=== PATIENT | female | born 1985 | race Caucasian/White ===

== ENCOUNTER → 2021-04-02 10:47 | Outpatient (BNVA) | payer OTHER, SELFPAY | PROVIDERS: Visit Provider Advanced Practice Midwife | DX: N92.6 Irregular menstruation, unspecified (principal); E66.8 Other obesity | CPT/HCPCS: 81025; 99212 ==

== ENCOUNTER 2021-04-03 12:36 | Outpatient (REF) | payer OTHER, SELFPAY ==
--- NOTE | ~2021-04-03 | US_ITS ---
EXAMINATION: US OBSTETRICAL ULTRASOUND CLINICAL INFORMATION: N92.6 - Irregular menstruation, unspecified. LMP unknown. Positive test. COMPARISON: Remote obstetrical ultrasound 01/28/2018 TECHNIQUE: Real time transabdominal imaging with color and M-mode Doppler. POSITION: Cephalic PLACENTA: Anterior AMNIOTIC FLUID: Subjectively normal. RAMAN not provided. MEASUREMENTS: biometric measurements are as follows: Biparietal Diameter: 6.88 cm (27 weeks 5 days) Occipital Frontal Diameter: 8.93 cm (27 weeks 4 days) Head Circumference: 25.51 cm (27 weeks 6 days) Abdominal Circumference: 22.84 cm (27 weeks 2 days) Femur Length: 5.13 cm (27 weeks 4 days) Tibia Length: 4.42 cm (27 weeks 2 days) The standard deviation for the above measurements is +/- 10 days. ESTIMATED WEIGHT: The EFW is 1060 grams +/- 155 grams (2 lbs 5 oz +/- 5 oz). ANATOMY (LIMITED): No hydrocephalus. stomach and kidneys unremarkable. cardiac activity 139 bpm. Four-chamber heart view not provided. US/US OB limited IMPRESSION: 1. Single intrauterine gestation in cephalic position with anterior placenta. 2. Ultrasound gestational age 27 weeks 4 days +/- 10 days. 3. Estimated date of delivery 06/29/2021 +/- 10 days. 4. EFW is 1060 grams +/- 155 grams (2 lbs 5 oz +/- 5 oz). 5. Amniotic fluid volume subjectively normal.
== END 2021-04-03 12:37 | disposition home or self-care (01) ==
LOC: HO.US 12:36
PROVIDERS: Visit Provider Advanced Practice Midwife
DX: N92.6 Irregular menstruation, unspecified (principal)
CPT/HCPCS: 76815

== ENCOUNTER 2022-02-03 09:15 | Emergency (ER) | payer OTHER, SELFPAY ==
[2022-02-03 09:41] VITALS: BP 152/78; PULSE 73; RESP 18; TEMP 36.4; O2SAT 97; BMI 46.3
[2022-02-03 09:48] LABS: Appearance Urine CLOUDY; Color Urine DK YELLOW; Glucose Urine UA NEG (NEG); Leukocyte Esterase Urine 2+ (NEG); Nitrite Urine NEG (NEG); Specific Gravity - Urine >= 1.030 (1.005-1.025); UACC Culture Trigger YES; Urine Blood 3+ (NEG); Urine Ketones NEG (NEG); Urine Protein 2+ MG/DL (NEG-TRACE)
[2022-02-03 09:50] LABS: UPreg QC Valid YES; Urine Pregnancy NEGATIVE (NEGATIVE)
--- NOTE | 2022-02-03 10:06 | ED_ITS ---
HPI - Female Genitourinary General Chief complaint: Urogenital-Female Stated complaint: ?UTI Time Seen by Provider: 02/03/22 10:02 Source: patient Mode of arrival: ambulatory Limitations: no limitations History of Present Illness MD elicited complaint: dysuria and UTI Pertinent past history: recurrent UTIs Onset (ago): day(s) (Since yesterday) Location of symptoms: suprapubic Severity: moderate Female Urogenital Radiation: Non-Radiating Quality of pain: cramping Consistency: constant Vaginal discharge: none Vaginal bleeding: none Urinary symptoms: Dysuria, Urgency and Frequency Exacerbating factors: urination Relieving factors: none Associated symptoms: denies other symptoms Treatment prior to arrival: none Patient : No Related Data Home Medications Medication Instructions Recorded Confirmed vitamin 1 tab PO DAILY 04/02/21 no.76-iron,carbonyl 29 mg iron-folic acid 1 mg tablet (PNV 29-1) Previous Rx's Medication Instructions Recorded nitrofurantoin 100 mg PO BID 7 Days #14 cap 02/03/22 monohydrate/macrocrystals 100 mg capsule (Macrobid) phenazopyridine 100 mg tablet 100 mg PO TID PRN #6 tab 02/03/22 (Pyridium) Allergies Allergy/AdvReac Type Severity Reaction Status Date / Time clarithromycin [From BIAXIN] Allergy Unknown HIVES AND Verified 02/03/22 09:41 FEVER Sulfa (Sulfonamide Allergy Unknown Tongue and Verified 02/03/22 09:41 Antibiotics) throat swelling Review of Systems Review of Systems: Constitutional : No Fever, No Chills, No Night Sweats, No Fatigue, No Malaise Cardiovascular : No Chest Pain, No SOB Respiratory : No Cough, No Sputum, No Wheezing, No Dyspnea Gastrointestinal : No Nausea, No Vomiting, No Diarrhea, No abdominal Pain, No Hematochezia, No Melena Genitourinary : + dysuria/urinary urgency/frequency, No irregular bleeding, No Hematuria,No Urinary Incontinence, No Flank Pain Musculoskeletal : No joint pain, No Myalgias, No Joint Swelling Skin : No Skin Lesions, No rash Neuro : No Weakness, No Numbness, No Paresthesias, No Loss of Consciousness, No Dizziness, No Headache Heme/Lymph: No Lymphadenopathy Endocrine : No Temperature Intolerance Yes all other systems are reviewed and are negative PMFSH Past Medical History Attestation statement: The following information was validated with the patient. Medical History Asthma Extreme obesity Surgical History Hx of dilation and curettage Social History Social History Alcohol intake: never Patient Tobacco Use Status: Former Tobacco user Advance Directives: No Advance Directives Information Provided: No Patient : No Physical Exam Vital Signs: Vital Signs: Last Vital Signs Temp 97.6 F 02/03/22 09:41 Pulse 73 02/03/22 09:41 Resp 18 02/03/22 09:41 BP 152/78 H 02/03/22 09:41 Pulse Ox 97 02/03/22 09:41 BMI result Body Mass Index 46.3 vital signs have been reviewed as normal and appeared to be correct. Blood pressure normal Heart rate normal. Respiration rate normal. Temperature normal. Oxygen saturation normal. Appearance: Alert. Oriented X3. No acute distress. Head: Normal external exam. Normocephalic. Eyes: PERRLA. EOMI. Conjunctiva and sclera normal. Eyelids normal. ENT: Pharynx normal. Uvula midline. Moist mucous membranes. No trismus noted. No drooling noted. No muffled voice noted. Neck: Normal inspection. Neck supple. FROM. No adenopathy. No meningeal signs. CVS: Normal heart rate and rhythm. Heart sound normal. No murmurs noted. Pulses normal throughout. Respiratory: No respiratory distress. Painless inspiration. Breath sounds normal. No wheezes/rales/rhonchi noted. Chest nontender. No accessory muscle usage noted or decreased air movement noted. Abdomen: Soft and nontender. Nondistended. No guarding. No rigidity. Bowel sounds normal in all 4 quadrants. No distention noted. No organomegaly noted. No visible injury noted. No rebound tenderness. Negative Rovsing sign. Negative obturator's sign. Negative psoas sign. Negative Stanton sign. Back: No CVA tenderness. Full range of motion noted. Skin: Skin warm and dry. Normal skin color. Normal skin turgor. No rashes/lesions/lacerations noted. Extremities: Extremities exhibit normal range of motion. Extremities nontender. Neuro: Oriented X 3. No motor deficit. No sensory deficit. Reflexes normal. Normal steady gait. CN's II-XII intact bilaterally? Course Course Course Narrative: Patient positive for UTI. Negative for . Will DC home antibiotics and symptomatic treatment instructions return if any new or worsening symptoms to follow up with primary care provider. Patient understands agrees with this plan. MDM - Female Genitourinary Medical Records Attestation: I reviewed the patient's medical records. Lab Data Attestation: I reviewed the patient's lab results. Labs: Lab Results 02/03/22 02/03/22 Range/Units 09:43 09:43 Urine Color DK YELLOW Urine Appearance CLOUDY Urine pH 6.0 (5.0-8.0) Ur Specific [place] >= 1.030 H (1.005-1.025) Urine Protein 2+ H (NEG-TRACE) MG/DL Urine Glucose (UA) NEG (NEG) MG/DL Urine Ketones NEG (NEG) MG/DL Urine Blood 3+ H (NEG) Urine Nitrite NEG (NEG) Ur Leukocyte Esterase 2+ H (NEG) Urine Test NEGATIVE (NEGATIVE) Discharge Plan Discharge Clinical Impression: Urinary tract infection Patient Disposition: Home, Self-Care Instructions: Urinary Tract Infection in Women (DC) Prescriptions: New nitrofurantoin monohyd/m-cryst [Macrobid] 100 mg capsule 100 mg PO BID 7 Days Qty: 14 0RF Rx Instructions: must administer with a meal/food phenazopyridine [Pyridium] 100 mg tablet 100 mg PO TID PRN (Reason: pain) Qty: 6 0RF No Action PNV 29-1 29 mg iron- 1 mg tablet 1 tab PO DAILY 0RF Referrals: Physician,Unknown J [Primary Care Provider] - (your pcp) Print Language: Indonesian
[2022-02-03 10:13] LABS: WBC Urine TNTC /HPF (0-4)
[2022-02-03 10:15] LABS: Bacteria Urine TRACE /LPF; Mucus Urine TRACE /LPF; Squamous Epithelial Cell Urine TRACE /LPF
[2022-02-03] MEDS: Nitrofurantoin Monohyd/M-Cryst 100 MG CAPSULE PO (10:15)
[2022-02-03] MEDS: Phenazopyridine HCL 200 MG TABLET PO (10:15)
== END 2022-02-03 10:22 | disposition home or self-care (01) ==
PROVIDERS: Emergency Provider Emergency Medicine
DX: N39.0 Urinary tract infection, site not specified (principal); J45.909 Unspecified asthma, uncomplicated
CPT/HCPCS: 81001; 81025; 87086; 87088; 87147; 87186; 99283

== ENCOUNTER 2023-11-16 14:33 | Outpatient (AMB) | payer OTHER, SELFPAY ==
--- NOTE | 2023-11-16 14:44 | MHC.OFFWIV ---
Intake Vital Signs 11/16/23 14:55 Height 5 ft 4 in Weight 250 lb BMI 42.9 BP 132/80 Blood Pressure Location Lt brachial Position Sitting Pulse 94 Pulse Source Pulse Oximeter Temp 97.8 F Temp Source Temporal Artery Scan Pulse Oximetry (%) 96 Oxygen Delivery Method Room Air Intake Visit Reasons: EP tooth infection-UTI Intake Note: pt is here today for tooth infection and UTI started yesterday Patient Tobacco Use Status: Current someday Tobacco user Patient : Yes Allergies clarithromycin [From BIAXIN] Allergy (Unknown, Verified 11/16/23 14:58) HIVES AND FEVER Sulfa (Sulfonamide Antibiotics) Allergy (Unknown, Verified 11/16/23 14:58) Tongue and throat swelling Do you need a note to return to daycare/school/sports/work: No HPI HPI Comments History of Present Illness Details Patient is a 38-year-old female in today for sick visit. Patient is 16 weeks , has not yet established care with OBGYN, states her appointment is in 2 days. She has a past medical history significant for obesity. She is in with a complaint of UTI, confirmed by in office urinalysis. Patient also states that she has a tooth infection, will not be able to see her dentist until after her OBGYN appointment. Patient states she has right-sided facial pain, denies tingling or numbness. Patient states she is able to eat and drink. Denies fever, chest pain, shortness a breath, nausea, vomiting, diarrhea. [facility] Medical History Extreme obesity Asthma Surgical History Hx of dilation and curettage Social History Alcohol intake: never Patient Tobacco Use Status: Current someday Tobacco user Patient : Yes Review of Systems Const Details: Constitutional : No Weight loss, No Fever, No Chills, No Fatigue, No Malaise ENT/Mouth : Admits right sided mouth pain. Denies bleeding, numbness. Eyes: No Eye Pain, No Swelling, No Redness Cardiovascular : No Chest Pain, No SOB, No Dyspnea on Exertion, No Orthopnea, No Edema, No Palpitations Respiratory : No Cough, No Sputum, No Wheezing Gastrointestinal : No Nausea, No Vomiting, No Diarrhea, No Constipation, No abdominal Pain, No Hematochezia, No Melena Genitourinary : Admits discomfort while urinating and increased frequency. Musculoskeletal : No joint pain, No Myalgias, No Joint Swelling Skin : No Skin Lesions, No rash Neuro : No Weakness, No Numbness, No Dizziness, No Headache Psych : No Anxiety/Panic, No Depression Heme/Lymph: No Bruising, No Bleeding,No Lymphadenopathy Endocrine : No Polyuria, No Polydipsia All other systems reviewed and are negative Physical Exam Vital Signs: Last Vital Signs Temp 97.8 F 11/16/23 14:55 Pulse 94 11/16/23 14:55 BP 132/80 11/16/23 14:55 Pulse Ox 96 11/16/23 14:55 Oxygen Delivery Method Room Air 11/16/23 14:55 BMI result Body Mass Index 42.9 Const General: cooperative and no acute distress Orientation/consciousness: patient oriented x3 Limitations: no limitations HEENT Ears: TM's normal bilaterally General nose exam: Normal external nose present Teeth and gingiva: abnormal tooth and associated gingiva Teeth image: 1. infected tooth 2. infected tooth Resp Auscultation: clear to auscultation bilaterally Cardio Rate: regular rate Rhythm: regular rhythm Heart sounds: S1 normal heart sound present and S2 normal heart sound present Neuro General: patient oriented x3 Results AMB Urinalysis, Automated UA Leukoctes 500 Kristyn/uL Last Edit by Mary Beth Delcid CMA on 11/16/23 14:45 UA Nitrite Negative Last Edit by Mary Beth Delcid CMA on 11/16/23 14:45 UA Urobilinogen 0.2 mg/dL Last Edit by Mary Beth Delcid CMA on 11/16/23 14:45 UA Protein 100 mg/dL Last Edit by Mary Beth Delcid CMA on 11/16/23 14:45 UA pH 6.0 Last Edit by Mary Beth Delcid CMA on 11/16/23 14:45 UA Blood 200 Felix/uL Last Edit by Mary Beth Delcid CMA on 11/16/23 14:45 UA Specific [place] 1.030 Last Edit by Mary Beth Delcid CMA on 11/16/23 14:45 UA Ketone Positive Last Edit by Mary Beth Delcid CMA on 11/16/23 14:45 UA Bilirubin 1 mg/dL Last Edit by Mary Beth Delcid CMA on 11/16/23 14:45 UA Glucose 0 mg/dL Last Edit by Mary Beth Delcid CMA on 11/16/23 14:45 Results Reviewed Results Reviewed: Laboratory Last Values Urine pH (Auto) 6.0 11/16/23 14:44 Specific [place] (Auto) 1.030 11/16/23 14:44 Urine Protein (Auto) 100 mg/dL 11/16/23 14:44 Glucose (UA)(Auto) 0 mg/dL 11/16/23 14:44 Urine Ketones (Auto) Positive 11/16/23 14:44 Urine Blood (Auto) 200 Felix/uL 11/16/23 14:44 Urine Nitrite (Auto) Negative 11/16/23 14:44 Urine Bilirubin (Auto) 1 mg/dL 11/16/23 14:44 Urine Urobilinogen (Auto) 0.2 mg/dL 11/16/23 14:44 Leukocyte Esterase (Auto) 500 Kristyn/uL 11/16/23 14:44 Assessment & Plan Assessment & Plan (1) Urinary tract infection: Comment: Patient will be given amoxicillin. She is 16 weeks . Patient has been instructed on how to take the medication properly. She has been educated on signs of worsening symptoms and when to report back to the walk-in or when to present to the emergency room. Code(s): N39.0 - Urinary tract infection, site not specified Qualifiers: Urinary tract infection type: site unspecified Hematuria presence: without hematuria Qualified Code(s): N39.0 - Urinary tract infection, site not specified Plan: Follow-up with OBGYN (2) Tooth infection: Comment: Patient will be given amoxicillin to be taken as directed. Code(s): K04.7 - Periapical abscess without sinus Plan: Follow-up with PCP. Plan Take your medications as prescribed. If you were prescribed antibiotics today, it is important that you take your medication to their entirety, do not skip any doses, do not finish them early. Follow-up with your primary care provider this week. Return to the emergency department with new or worsening symptoms. Such as fevers, chills, chest pain, shortness of breath, nausea, vomiting, dizziness, headache, vision changes, lethargy In case of emergency call 911 Orders: Orders AMB Urinalysis Automated Today Z13.9 - Encounter for screening, unspecified Gregory Rivera MD Medications: New amoxicillin 500 mg PO TID 15 caps 0RF KWESI Fong Coding Level of Care Code Est Pt Level 3 (07706) Diagnoses Urinary tract infection without hematuria, site unspecified N39.0 Urinary tract infection type: site unspecified Hematuria presence: without hematuria Tooth infection K04.7 Time Spent (min) 25
[2023-11-16 14:55] VITALS: BP 132/80; PULSE 94; TEMP 36.6; O2SAT 96; BMI 42.9
== END 2023-11-16 15:35 | disposition home or self-care (01) ==
PROVIDERS: PCP Physician Assistant; Visit Provider Nurse Practitioner Primary Care
DX: N39.0 Urinary tract infection, site not specified (principal); K04.7 Periapical abscess without sinus
CPT/HCPCS: 81003; 99213